=== PATIENT | female | born 1975 | race Caucasian/White ===

== ENCOUNTER → 2018-12-04 | Outpatient (CLI) | payer BC, OTHER ==
[~2018-12-04] MED LIST: INSU100C SQ-INSULIN; INSU100I32 SQ; LAMO200T49 PO; LEVO150T5 PO; LEVO175T5 PO; PARO20TA4 PO; TRAZ50TA66 PO
== END | disposition home or self-care (01) ==
LOC: STAR 11:42
PROVIDERS: ATTEND Neurological Surgery
DX: Z01.818 Encounter for other preprocedural examination (principal); M54.2 Cervicalgia
CPT/HCPCS: 71046

== ENCOUNTER 2018-12-11 05:27 | Day surgery (SDC) | payer BC, OTHER ==
[~2018-12-11] VITALS: Ht 165.1 cm; Wt 62.0 kg
[2018-12-11] MEDS ORDERED: LACTATED RINGERS 1,000 ML IV SCH (06:10)
[2018-12-11 06:28] LABS: HCG UR SG 1.029 (1.003-1.030)
[2018-12-11] MEDS ORDERED: PROPOFOL 50 ML ONE (06:53)
[2018-12-11] MEDS ORDERED: MIDAZOLAM 1 MG/ML, 2ML ONE (06:53)
[2018-12-11] MEDS ORDERED: FENTANYL PF 250 MCG/5ML ONE (06:53)
[2018-12-11] MEDS ORDERED: METHYLENE BLUE 10 MG/ML 10ML ONE (07:00)
[2018-12-11] MEDS ORDERED: BUPIVACAINE/PF-EPI 0.5% 1:200K ONE (07:00)
[2018-12-11] MEDS ORDERED: BACITRACIN 50,000 UNIT ONE (07:00)
[2018-12-11] MEDS ORDERED: THROMBIN 20,000 UNIT VIAL TP ONE (07:00)
[2018-12-11] MEDS ORDERED: GABAPENTIN 300 MG CAPSULE PO ONE (07:30)
[2018-12-11] MEDS ORDERED: ACETAMINOPHEN 500 MG TABLET PO ONE (07:30)
[2018-12-11] MEDS ORDERED: ONDANSETRON ODT 8 MG PO ONE (07:30)
[2018-12-11] MEDS ORDERED: morphine SULFATE 10 MG/ML, 1ML IVPush STA (08:22)
[2018-12-11] MEDS ORDERED: DEXAMETHASONE 4 MG/ML, 1ML ONE (09:36)
[2018-12-11] MEDS ORDERED: PROPOFOL 10 MG/ML, 20ML ONE (09:36)
[2018-12-11] MEDS ORDERED: CEFAZOLIN 1,000 MG ONE (09:36)
[2018-12-11] MEDS ORDERED: SUCCINYLCHOLINE 20 MG/ML, 10ML ONE (09:36)
[2018-12-11] MEDS ORDERED: ONDANSETRON 2MG/ML, 2ML IV PRN ×2 (10:30→13:30)
[2018-12-11] MEDS ORDERED: HYDROmorphone 2 MG/ML, 1ML IVPush PRN (10:30)
[2018-12-11] MEDS ORDERED: LABETALOL 5MG/ML, 20ML IV PRN (10:30)
[2018-12-11] MEDS ORDERED: hydrALAzine 20 MG/ML, 1ML IV PRN (10:30)
[2018-12-11] MEDS ORDERED: MEPERIDINE/PF 25MG/0.5ML IVPush PRN (10:30)
[2018-12-11] MEDS ORDERED: METOCLOPRAMIDE 5 MG/ML, 2ML IV PRN (10:30)
[2018-12-11] MEDS ORDERED: FENTANYL PF 100 MCG/2ML IV PRN (10:30)
[2018-12-11] MEDS ORDERED: LORazepam 2 MG/ML, 1ML IVPush PRN (10:30)
[2018-12-11] MEDS ORDERED: OXYcodone 5 MG/5 ML ORAL.SOL UDC PO PRN (10:30)
[2018-12-11] MEDS ORDERED: MORPHINE SULFATE 4 MG/ML, 1ML ONE ×2 (11:25→11:51)
[2018-12-11] MEDS ORDERED: OXYcodone 5 MG/5 ML ORAL.SOL UDC ONE (11:25)
[2018-12-11] MEDS ORDERED: METHOCARBAMOL 750 MG TABLET ONE (11:25)
[2018-12-11] MEDS: MORPHINE SULFATE 4 MG/ML, 1ML IVPush PRN ×3 (11:30→12:05)
[2018-12-11] MEDS ORDERED: METHOCARBAMOL 1,000 MG in DEXTROSE 5% 100 ML IV ONE (12:30)
[2018-12-11] MEDS ORDERED: NS + 20MEQ KCL 1,000 ML IV SCH (13:30)
[2018-12-11] MEDS ORDERED: DIPHENHYDRAMINE 50 MG/ML, 1ML IVPush PRN (13:30)
[2018-12-11] MEDS ORDERED: morphine SULFATE 10 MG/ML, 1ML IV PRN (13:30)
[2018-12-11] MEDS ORDERED: DIPHENHYDRAMINE 50 MG/ML, 1ML IM PRN (13:30)
[2018-12-11] MEDS ORDERED: DIPHENHYDRAMINE 50 MG CAPSULE PO PRN (13:30)
[2018-12-11] MEDS ORDERED: MAGNESIUM HYDROXIDE 8%, 30ML UDC PO PRN (13:30)
[2018-12-11] MEDS ORDERED: ACETAMINOPHEN 325 MG TABLET PO PRN (13:30)
[2018-12-11] MEDS ORDERED: PROMETHAZINE 25 MG/ML, 1ML IM PRN (13:30)
[2018-12-11] MEDS ORDERED: OXYcodone/APAP 5/325MG TABLET PO PRN (13:30)
[2018-12-11] MEDS ORDERED: BISACODYL 10 MG SUPP PR PRN (13:30)
[2018-12-11] MEDS ORDERED: ACETAMINOPHEN 650 MG SUPP PR PRN (13:30)
[2018-12-11 14:22] VITALS: BP 110/69
[2018-12-11] MEDS ORDERED: INSULIN LISPRO 100 UNITS/ML, PEN SS SQ-INSULIN SCH (16:00)
[2018-12-11] MEDS ORDERED: OXYC-302 PO (17:41)
[2018-12-11] MEDS ORDERED: CYCL-259 PO (17:41)
[2018-12-11] MEDS ORDERED: CEFAZOLIN PMX 2GM/50ML 50 ML IVPB SCH (18:00)
[2018-12-11] MEDS ORDERED: INSULIN DEGLUDEC SQ-INSULIN SCH (18:00)
[2018-12-11] MEDS ORDERED: [UNRECOGNIZED DRUG - OTHER] SQ-INSULIN SCH (18:00)
[2018-12-11] MEDS ORDERED: METHOCARBAMOL 750 MG in DEXTROSE 5% 100 ML IV SCH (20:00)
[2018-12-11] MEDS ORDERED: PAROXETINE 20 MG TABLET PO SCH (21:00)
[2018-12-11] MEDS ORDERED: LAMOTRIGINE 200 MG TABLET PO SCH (21:00)
[2018-12-11] MEDS ORDERED: TRAZODONE 50MG TABLET PO SCH (21:00)
[2018-12-11] MEDS ORDERED: LEVOTHYROXINE 175 MCG TABLET PO SCH (21:00)
[2018-12-12] MEDS ORDERED: SENNA/DOCUSATE TABLET PO SCH (09:00)
[2018-12-13] MEDS ORDERED: METHOCARBAMOL 750 MG TABLET PO SCH (20:00)
[2018-12-14] MEDS ORDERED: LEVOTHYROXINE 150 MCG TABLET PO SCH (21:00)
== END 2018-12-11 20:30 | disposition left against medical advice (07) ==
LOC: OUT 05:27 → 4NOR 12:57 → UNDOADMIN 12:58 → OUT 13:36 → EDSTATUS 15:00 → OUT 20:30 → UNDODISIN 20:30
PROVIDERS: ATTEND Neurological Surgery
DX: M50.221 Other cervical disc displacement at C4-C5 level (principal); M47.12 Other spondylosis with myelopathy, cervical region; M48.02 Spinal stenosis, cervical region; G43.909 Migraine, unspecified, not intractable, without status migrainosus; F31.9 Bipolar disorder, unspecified; E03.9 Hypothyroidism, unspecified; E10.9 Type 1 diabetes mellitus without complications; F17.210 Nicotine dependence, cigarettes, uncomplicated; G89.29 Other chronic pain; Z90.710 Acquired absence of both cervix and uterus; Z98.51 Tubal ligation status; Z88.8 Allergy status to other drugs, medicaments and biological substances; Z79.4 Long term (current) use of insulin; Z72.89 Other problems related to lifestyle; Z79.899 Other long term (current) drug therapy
CPT/HCPCS: 20680; 20937; 22551; 22853; 72040; 81025; 82962; 93005; 97161; C1713; C1762; C1778; J0330; J0690; J1100; J1815; J2250; J2270; J2704; J2800; J3010; J3480; J7120; Q0162; Q9968; G0378